=== PATIENT | female | born 1990 | race Caucasian/White ===

== ENCOUNTER 2020-02-06 18:31 | Emergency (ER) | payer SELFPAY | END 2020-02-06 19:11 | disposition home or self-care (01) | LOC: ERS 18:31 | DX: N76.0 Acute vaginitis (principal); J45.909 Unspecified asthma, uncomplicated; D64.9 Anemia, unspecified; F43.10 Post-traumatic stress disorder, unspecified; F41.9 Anxiety disorder, unspecified; F32.9 Major depressive disorder, single episode, unspecified; Z79.899 Other long term (current) drug therapy | CPT/HCPCS: 99283 ==

== ENCOUNTER 2020-09-03 10:06 | Emergency (ER) | payer SELFPAY ==
[2020-09-03] MEDS ORDERED: Acetaminophen 325 MG TAB ONE (11:43)
== END 2020-09-03 12:19 | disposition home or self-care (01) ==
LOC: ERS 10:06
DX: J45.909 Unspecified asthma, uncomplicated (principal); Z76.0 Encounter for issue of repeat prescription; D64.9 Anemia, unspecified; F41.9 Anxiety disorder, unspecified; F32.9 Major depressive disorder, single episode, unspecified; F43.10 Post-traumatic stress disorder, unspecified; Z79.51 Long term (current) use of inhaled steroids; Z79.899 Other long term (current) drug therapy
CPT/HCPCS: 99281

== ENCOUNTER 2020-09-26 15:29 | Emergency (ER) | payer SELFPAY ==
[2020-09-26] MEDS ORDERED: Dexamethasone 10 MG/ML VIAL ONE (16:12)
[2020-09-26] MEDS ORDERED: Magnesium 2 GM/50 ML BAG (IN WATER) ONE (16:12)
[2020-09-26] MEDS ORDERED: Albuterol Sulfate 2.5 mg/0.5 ml Neb ONE (16:21)
--- NOTE | 2020-09-26 16:29 | RAD ---
Chest AP view INDICATION: History of asthma and wheezing COMPARISON: None FINDINGS: Lungs: The lungs are clear Cardiac silhouette: The cardiomediastinal silhouette appears within normal limits. Pulmonary vasculature: Normal Pleural spaces: No pleural effusion or pneumothorax is demonstrated. Upper abdomen: No abnormality seen. Osseous structures: No acute osseous abnormality. Additional findings: None. IMPRESSION: No acute cardiopulmonary abnormality.
== END 2020-09-26 17:05 | disposition home or self-care (01) ==
LOC: ERS 15:29
DX: J45.901 Unspecified asthma with (acute) exacerbation (principal); D64.9 Anemia, unspecified; F43.10 Post-traumatic stress disorder, unspecified; F41.9 Anxiety disorder, unspecified; F32.9 Major depressive disorder, single episode, unspecified; Z79.899 Other long term (current) drug therapy
CPT/HCPCS: 71045; 94640; 96365; 96375; J1100; J3475; J7611; J7620

== ENCOUNTER 2024-12-07 15:52 | Emergency (ER) | payer BC ==
[2024-12-07] MEDS ORDERED: methylPREDNISolone Sod Succ/PF 125 MG/2 ML VIAL ONE (16:32)
[2024-12-07] MEDS ORDERED: Ipratropium/Albuterol 3 ML NEB ONE (16:32)
[2024-12-07 16:50] LABS: #Basophils 0.03 10x3/uL (0.0-0.2); %Basophils 0.6 % (0.0-1.0); %Eosinophils 3.4 % (0.0-10.0); %Lymphocytes 19.1 % (21.0-51.0); %Neutrophils 67.7 % (42.0-75.0); Hematocrit 39.6 % (36.0-47.0); Hemoglobin 13.1 g/dL (12.0-16.0); Mean Corpuscular HGB CONC 33.1 g/dL (32.0-36.0); Mean Corpuscular Hemoglobin 28.6 pg (27.0-31.0); Mean Corpuscular Volume 86.5 fL (78.0-98.0); Mean Platelet Volume 10.4 fL (7.4-10.4); Platelet Count 234 10x3/uL (130-400); RBC Distribution Width 12.8 % (11.5-14.5); Red Blood Cell (RBC) Count 4.58 mill/uL (4.20-5.40)
[2024-12-07 16:57] LABS: BHCG - Serum Negative (NEGATIVE); Pregs Control Background? CLEAR/WHITE (CLR/WHITE); Pregs Control Bar Appear? YES (CONTROL BAR)
[2024-12-07 17:03] LABS: ALT (SGPT) 51 U/L (8-55); AST (SGOT) 25 U/L (5-34); Albumin 4.1 g/dL (3.5-5.0); Alkaline Phosphatase 93 U/L (40-110); Anion Gap 11 mmol/L (10-20); BUN (Urea Nitrogen) 9 mg/dL (7.0-18.7); Bilirubin, Total 0.2 mg/dL (0.2-1.2); Calc. Creatinine Clearance 0 mL/min (70-130); Calcium 9.2 mg/dL (7.8-10.44); Carbon Dioxide 22 mmol/L (22-29); Chloride 106 mmol/L (98-107); Estimated GFR 119; Globulin 3.7 g/dL (2.4-3.5); Glucose 129 mg/dL (70-105); Potassium 3.6 mmol/L (3.5-5.1); Protein, Total 7.8 g/dL (6.0-8.3); Sodium 135 mmol/L (136-145)
[2024-12-07 17:08] LABS: Troponin I Less than 0.010 ng/mL (< 0.028)
== END 2024-12-07 18:40 | disposition home or self-care (01) ==
LOC: ERS 15:52
DX: J45.901 Unspecified asthma with (acute) exacerbation (principal)
CPT/HCPCS: 71045; 80053; 83880; 84484; 84703; 85025; 85379; 87428; 96374; J2919; J7620